=== PATIENT | male | born 1990 | race Hispanic/Latino ===

== ENCOUNTER 2022-08-11 03:07 | Emergency (ER) | payer OTHER ==
[2022-08-11 04:32] LABS: Basophils # (Auto) 0.1 K/mm3 (0.0-0.1); Basophils % (Auto) 0.7 % (0.0-1.8); Eosinophils # (Auto) 0.7 K/mm3 (0.0-0.4); Eosinophils % (Auto) 8.5 % (0.0-4.3); Hematocrit 47.1 % (35.5-45.6); Hemoglobin 15.7 gm/dl (11.8-15.2); Lymphocytes # (Auto) 2.4 K/mm3 (1.2-5.4); Mean Corpuscular HGB Conc 33 % (32-34); Mean Corpuscular Volume 84 fl (84-94); Monocytes # (Auto) 0.7 K/mm3 (0.0-0.8); Monocytes % (Auto) 9.3 % (0.0-7.3); Platelet Count 293 K/mm3 (140-440); Red Blood Count 5.63 M/mm3 (3.65-5.03); Red Cell Distribution Width 16.5 % (13.2-15.2)
[2022-08-11 04:41] LABS: BUN/Creatinine Ratio 9; Blood Urea Nitrogen 8 mg/dL (9-20); Calcium 9.7 mg/dL (8.4-10.2); Hemolysis Index 10
[2022-08-11 06:10] LABS: Color,Urine Straw (Yellow)
[2022-08-11 06:11] LABS: Mucus,Urine FEW /HPF; Sperm,Urine 1+ /HPF (NP); WBC,Urine < 1.0 /HPF (0.0-6.0)
[2022-08-11 06:22] LABS: Benzodiazepines Screen,Urine Negative; Cocaine Screen,Urine Negative; Methadone Screen,Urine Negative; Opiate Screen,Urine Negative
[2022-08-11 06:50] LABS: Amphetamine Screen,Urine Positive; Cannabinoid Screen,Urine Positive
[2022-08-11 06:58] VITALS: BP 132/86
--- NOTE | 2022-08-11 06:58 | Emergency Department Report ---
ED Psych HPI - General Chief Complaint: Psych Stated Complaint: BODY RASH Time Seen by Provider: 08/11/22 06:45 Source: patient, EMS, RN notes reviewed Mode of arrival: Stretcher Limitations: No Limitations - History of Present Illness Initial Comments: 31-year-old white male with a history of amphetamine abuse, said earlier he wanted to hurt himself now he does not want to do so. Patient was at [facility], was noted to have blisters on arm and sent for for evaluation. Patient has no suicidal ideations or homicidal ideation at this time. MD Complaint: suicidal ideation (Resolved. Patient at [facility].) -: Gradual Associated Psychiatric Symptoms: none History of same: Yes Quality: resolved prior to arrival Improves With: none Worsens With: none - Related Data Previous Rx's Medication Instructions Recorded Last Taken Type Amoxicillin [Amoxicillin TAB] 875 mg PO BID #14 08/11/22 Unknown Rx Allergies Allergy/AdvReac Type Severity Reaction Status Date / Time No Known Allergies Allergy Unverified 08/11/22 03:17 ED Review of Systems ROS: Stated complaint: BODY RASH Other details as noted in HPI Constitutional: denies: chills, fever Eyes: denies: eye pain, eye discharge, vision change ENT: denies: ear pain, throat pain Respiratory: denies: cough, shortness of breath, wheezing Cardiovascular: as per HPI Endocrine: no symptoms reported, see HPI Gastrointestinal: denies: abdominal pain, nausea, diarrhea Genitourinary: denies: urgency, dysuria Skin: rash Neurological: denies: headache, weakness, paresthesias Psychiatric: denies: anxiety, depression Hematological/Lymphatic: denies: easy bleeding, easy bruising ED Past Medical Hx - Past Medical History Previous Medical History?: Yes Hx Psychiatric Treatment: Yes (SUBSTANCE ABUSE, ETOH & METH) - Surgical History Past Surgical History?: No - Social History Smoking Status: Current Every Day Smoker Substance Use Type: Alcohol, Methamphetamines - Medications Home Medications: Home Medications Medication Instructions Recorded Confirmed Last Taken Type Amoxicillin [Amoxicillin TAB] 875 mg PO BID #14 08/11/22 Unknown Rx ED Physical Exam - General Limitations: No Limitations General appearance: alert, in no apparent distress - Head Head exam: Present: atraumatic, normocephalic - Eye Eye exam: Present: normal appearance, PERRL - ENT ENT exam: Present: normal exam, normal orophraynx, mucous membranes moist - Neck Neck exam: Present: normal inspection. Absent: tenderness - Respiratory Respiratory exam: Present: normal lung sounds bilaterally. Absent: respiratory distress, chest wall tenderness - Cardiovascular Cardiovascular Exam: Present: regular rate, normal rhythm. Absent: systolic murmur, diastolic murmur, rubs, gallop - GI/Abdominal GI/Abdominal exam: Present: soft, normal bowel sounds. Absent: distended, tenderness, guarding - Expanded Upper Extremity Exam Left General: Present: other Shoulder Exam: Present: normal inspection, full ROM. Absent: tenderness Upper Arm exam: Present: normal inspection, full ROM. Absent: tenderness, sw elling Elbow exam: Present: normal inspection. Absent: full ROM, tenderness, swelling Forearm Wrist exam: Present: other (Minimal healing blisters on forearm appear to be bug bites.) ED Course Vital Signs 08/11/22 08/11/22 08/11/22 03:21 03:41 03:46 Temperature 97.9 F Pulse Rate 89 74 83 Respiratory 18 11 L 21 Rate Blood Pressure 140/90 138/86 O2 Sat by Pulse 99 100 100 Oximetry 08/11/22 08/11/22 08/11/22 04:00 04:16 04:30 Temperature Pulse Rate 85 81 89 Respiratory 19 20 15 Rate Blood Pressure 138/86 129/78 129/78 O2 Sat by Pulse 100 100 99 Oximetry 08/11/22 08/11/22 08/11/22 04:46 05:00 05:16 Temperature Pulse Rate 90 88 87 Respiratory 17 17 18 Rate Blood Pressure 128/82 128/82 129/79 O2 Sat by Pulse 98 98 99 Oximetry 08/11/22 08/11/22 08/11/22 05:30 05:46 06:00 Temperature Pulse Rate 98 H 86 83 Respiratory 18 21 18 Rate Blood Pressure 129/79 129/79 129/79 O2 Sat by Pulse 98 99 98 Oximetry 08/11/22 08/11/22 08/11/22 06:16 06:30 06:46 Temperature Pulse Rate 82 79 87 Respiratory 16 16 18 Rate Blood Pressure 129/79 127/84 132/86 O2 Sat by Pulse 98 99 98 Oximetry ED Medical Decision Making - Lab Data Result diagrams: 08/11/22 03:56 08/11/22 03:56 Critical care attestation.: If time is entered above; I have spent that time in minutes in the direct care of this critically ill patient, excluding procedure time. ED Disposition Clinical Impression: Bug bite with infection Disposition: [address] [place] [address] Is pt being admited?: No Does the pt Need Aspirin: No Condition: Stable Instructions: Insect Bite, Adult Prescriptions: Amoxicillin [Amoxicillin TAB] 875 mg PO BID #14
== END 2022-08-11 11:32 ==
LOC: ED 03:07
DX: T14.8XXA Other injury of unspecified body region, initial encounter (principal); F17.200 Nicotine dependence, unspecified, uncomplicated; Z79.899 Other long term (current) drug therapy; W57.XXXA Bitten or stung by nonvenomous insect and other nonvenomous arthropods, initial encounter; Y93.89 Activity, other specified; Y92.89 Other specified places as the place of occurrence of the external cause; Y99.8 Other external cause status
CPT/HCPCS: 36415; 80048; 80307; 80320; 81001; 85025; 99282; 99283; G0480

== ENCOUNTER 2022-08-11 18:27 | Emergency (ER) | payer OTHER ==
[2022-08-11 19:39] VITALS: BP 129/86
--- NOTE | 2022-08-11 21:50 | Emergency Department Report ---
ED Rash HPI - HPI Chief Complaint: Skin Rash Stated Complaint: MEDICAL CLEARENCE Time Seen by Provider: 08/11/22 21:43 Duration: 2 Days Location: Upper Extremities Suspected Cause: Plant Rash Symptoms: Yes Itching, No Facial Swelling, No Tongue/Oral Swelling, No Breathing Difficulties, No Choking Sensation, No Wheezing/Dyspnea, No Peeling, No Blistering, No Fever, No Lightheaded, No Malaise, No Myalgias Severity: mild, moderate Other History: 31-year-old male history of meth amphetamine abuse presenting to the emergency department for medical clearance. Patient reports he was sent from [facility] for evaluation of his rash before he could be accepted. Patient has some pruritic rash to his upper extremities which he sustained a few days ago while he was outdoors in [place]. He describes the rash as itching, followed by his upper extremities. Rash does not spread, no fever, no blisters, no body aches fatigue weakness, no angioedema, no chest pain, no wheezing, no shortness of breath, no abdominal pain, no nausea vomiting. Denies SI or HI. Request clearance from the emergency department before [facility] can accept him back to the facility. ED Review of Systems ROS: Stated complaint: MEDICAL CLEARENCE Other details as noted in HPI Constitutional: see HPI Respiratory: see HPI Cardiovascular: denies: chest pain, palpitations Endocrine: denies: intolerance to cold, intolerance to heat Gastrointestinal: denies: abdominal pain, nausea, vomiting Skin: rash, lesions, change in color, pruritus Psychiatric: denies: auditory hallucinations, homicidal thoughts, suicidal thoughts Hematological/Lymphatic: denies: easy bleeding, easy bruising ED Past Medical Hx - Past Medical History Hx Psychiatric Treatment: Yes (SUBSTANCE ABUSE, ETOH & METH) - Social History Smoking Status: Never Smoker Substance Use Type: None - Medications Home Medications: Home Medications Medication Instructions Recorded Confirmed Last Taken Type Amoxicillin [Amoxicillin TAB] 875 mg PO BID #14 08/11/22 Unknown Rx Hydrocortisone/Aloe Vera 1 applic TP QID #1 tube 08/11/22 Unknown Rx [Cortizone-10 1% Creme] Pramoxine HCl/Calamine [Calamine 1 applic TP TID PRN #1 08/11/22 Unknown Rx Medicated Lotion] diphenhydrAMINE [Benadryl CAP] 25 mg PO QID PRN #25 capsule 08/11/22 Unknown Rx Rash Exam - Exam General: Vital signs noted. No distress. Alert and acting appropriately. HEENT: No Periorbital Edema, No Conjuctival Injection, No Chemosis, No Perioral Edema, No Tongue Edema, No Uvular Edema, No Compromised Airway, No Drooling Lungs: Yes Good Air Exchange, No Wheezes, No Ronchi, No Stridor, No Cough, No Labored Respirations, No Retractions, No Use of Accessory Muscles, No Other Abnormal Lung Sounds Heart: Yes Regular, No Murmur Skin: Yes Maculopapular Rash (Diffuse itchy papular rash to his upper extremities), No Urticarial Rash, No Morbilliform rash, No Bulla(e), No Excoriations, No Weeping, No Tenderness, No Erythema, No Edema, No Encrustations Other: Positive: Abdomen Normal, Neurologic Normal, Musculoskeletal Normal ED Course Vital Signs 08/11/22 19:38 Temperature 98.8 F Pulse Rate 89 Respiratory 18 Rate Blood Pressure 129/86 O2 Sat by Pulse 99 Oximetry ED Medical Decision Making - Medical Decision Making 31-year-old male history of meth amphetamine abuse presenting to the emergency department for medical clearance. Patient reports he was sent from [facility] for evaluation of his rash before he could be accepted. Patient has some pruritic rash to his upper extremities which he sustained a few days ago while he was outdoors [place] He describes the rash as itching, followed by his upper extremities. Rash does not spread, no fever, no blisters, no body aches fatigue weakness, no angioedema, no chest pain, no wheezing, no shortness of breath, no abdominal pain, no nausea vomiting. Denies SI or HI. Request clearance from the emergency department before [facility] can accept him back to the facili The rash does not appear to be of dangerous etiology, based on his history and examination, most likely dermatitis contact from outdoor exposure. Discharge home with topical ointment, patient is medically cleared to return to the rehab facility. Critical care attestation.: If time is entered above; I have spent that time in minutes in the direct care of this critically ill patient, excluding procedure time. ED Disposition Clinical Impression: Contact dermatitis, Rash and nonspecific skin eruption Disposition: HOME / SELF CARE / HOMELESS Is pt being admited?: No Does the pt Need Aspirin: No Condition: Stable Instructions: Rash, Adult, [id number] Additional Instructions: Your rash does not appear to be contagious, your vital signs are stable, you have no fever, no body aches fatigue no nausea vomiting, you do have an outdoor exposure most likely this is as a result of being outdoors and food. You were cleared to go back to the rehab facility at [facility]. Use some topical ointments I have prescribed, you can also take some Benadryl as needed for severe itching. Avoid scratching, and did not hesitate to return to the emergency department if symptoms worsen. Have also provided a referral for sales inspector for follow-up evaluation in the next few days Prescriptions: diphenhydrAMINE [Benadryl CAP] 25 mg PO QID PRN #25 capsule PRN Reason: Itching Pramoxine HCl/Calamine [Calamine Medicated Lotion] 1 applic TP TID PRN #1 PRN Reason: Itching Hydrocortisone/Aloe Vera [Cortizone-10 1% Creme] 1 applic TP QID #1 tube
[2022-08-12] MEDS ORDERED: diphenhydrAMINE 25 MG CAP PO ONE (00:17)
[2022-08-12] MEDS ORDERED: predniSONE 20 MG TAB PO ONE (00:17)
== END 2022-08-12 03:05 | disposition home or self-care (01) ==
LOC: ED 18:27
DX: L25.9 Unspecified contact dermatitis, unspecified cause (principal); R21 Rash and other nonspecific skin eruption
CPT/HCPCS: 99282